=== PATIENT | female | born 1985 | race Caucasian/White ===

== ENCOUNTER 2018-09-25 11:58 | Emergency (ER) | payer MEDICAID, OTHER ==
[2018-09-25 12:17] VITALS: BP 129/82; PULSE 91; RESP 18; TEMP 98.8; O2SAT 99; BMI 19.4
--- NOTE | 2018-09-25 14:17 | CT ---
Date of service: 09/25/2018 PROCEDURE: CT HEAD WITHOUT CONTRAST. HISTORY: head injury COMPARISON: None available. TECHNIQUE: Axial computed tomography images were obtained through the head/brain without intravenous contrast. Radiation dose: Total exam DLP = 781.23 mGy-cm. This CT exam was performed using one or more of the following dose reduction techniques: Automated exposure control, adjustment of the mA and/or kV according to patient size, and/or use of iterative reconstruction technique. FINDINGS: HEMORRHAGE: No intracranial hemorrhage. BRAIN: Normal cedeno-white matter differentiation and density are appreciated throughout the cerebrum and cerebellum with the brainstem appearing unremarkable as well. There is no mass effect. There is no suspicious extra-axial fluid collection and the midline brain anatomy appears diffusely unremarkable. VENTRICLES: Unremarkable. No hydrocephalus. CALVARIUM: Unremarkable. PARANASAL SINUSES: Unremarkable as visualized. No significant inflammatory changes. MASTOID AIR CELLS: Unremarkable as visualized. No inflammatory changes. OTHER FINDINGS: None. IMPRESSION: Unremarkable noncontrast CT of the Head.
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
== END 2018-09-25 15:15 | disposition home or self-care (01) ==
LOC: H.ER 11:58
DX: S09.90XA Unspecified injury of head, initial encounter (principal); Y04.0XXA Assault by unarmed brawl or fight, initial encounter; Y92.89 Other specified places as the place of occurrence of the external cause

== ENCOUNTER 2018-10-16 11:30 | Emergency (ER) | payer MEDICAID, OTHER ==
[2018-10-16 11:45] VITALS: BMI 22.8
[2018-10-16 11:46] VITALS: TEMP 98
--- NOTE | 2018-10-16 12:11 | ED PDOC ---
HPI: Chest Pain Time Seen by Provider: 10/16/18 11:49 Chief Complaint (Nursing): Weakness/Neurological Deficit Chief Complaint (Provider): Chest Pain History Per: Patient History/Exam Limitations: no limitations Onset/Duration Of Symptoms: Hrs Current Symptoms Are (Timing): Still Present Additional Complaint(s): 33 year old female with a past medical history of bipolar disease presents to the ER for an evaluation of chest pain described as numbness in the left arm af ter having seizure when showering standing up at gym 45 prior to arrival. The seizure was not witnessed. Patient states she has seizures frequently between 7pm to 9pm. She does not take any medication and she follows-up with a neurologist. Denies any fall, shortness of breath, cough, injury or fever. PMD: Non [facility] Provider Past Medical History Reviewed: Historical Data, Nursing Documentation, Vital Signs Vital Signs: Last Vital Signs Temp 98 F 10/16/18 11:45 Pulse 74 10/16/18 11:45 Resp 20 10/16/18 11:45 BP 128/86 10/16/18 11:45 Pulse Ox 100 10/16/18 11:45 - Medical History PMH: Anxiety, Bipolar Disorder, Diabetes, Fibromyalgia, HTN, Post Traumatic Stress Disorder, Schizophrenia, Seizures Denies: Hepatitis, HIV, Chronic Kidney Disease, Sexually Transmitted Disease - Family History Family History: States: Unknown Family Hx - Immunization History Hx Tetanus Toxoid Vaccination: No Hx Influenza Vaccination: No Hx Pneumococcal Vaccination: No - Home Medications Home Medications: Ambulatory Orders Medication Instructions Recorded Cephalexin [cephalexin] 500 mg PO QID #28 cap 06/13/18 Ibuprofen [Motrin] 600 mg PO Q8 PRN #20 tab 06/13/18 - Allergies Allergies/Adverse Reactions: Allergies Allergy/AdvReac Type Severity Reaction Status Date / Time acetaminophen [From Tylenol] Allergy SWELLING Verified 06/13/18 20:27 fluticasone Allergy SWELLING Verified 06/13/18 20:27 [From Advair Diskus] gluten Allergy SWELLING Verified 06/13/18 20:27 salmeterol Allergy SWELLING Verified 06/13/18 20:27 [From Advair Diskus] shellfish derived Allergy SWELLING Verified 06/13/18 20:27 Review of Systems ROS Statement: Except As Marked, All Systems Reviewed And Found Negative Constitutional: Negative for: Fever Cardiovascular: Positive for: Chest Pain Respiratory: Negative for: Cough, Shortness of Breath Musculoskeletal: Positive for: Arm Pain (left) Neurological: Negative for: Headache, Dizziness Psych: Negative for: Suicidal ideation (homicidal ideation) Physical Exam - Reviewed Nursing Documentation Reviewed: Yes Vital Signs Reviewed: Yes - Physical Exam Appears: Positive for: Well, Non-toxic, No Acute Distress Head Exam: Positive for: ATRAUMATIC, NORMAL INSPECTION, NORMOCEPHALIC Skin: Positive for: Normal Color, Warm, Dry. Negative for: Rash Eye Exam: Positive for: EOMI, Normal appearance, PERRL ENT: Positive for: Normal ENT Inspection Neck: Positive for: Normal, Painless ROM Cardiovascular/Chest: Positive for: Regular Rate, Rhythm. Negative for: Murmur Respiratory: Positive for: Normal Breath Sounds. Negative for: Decreased Breath Sounds, Wheezing, Respiratory Distress Gastrointestinal/Abdominal: Positive for: Normal Exam, Soft. Negative for: Tenderness Back: Positive for: Normal Inspection Extremity: Positive for: Normal ROM. Negative for: Tenderness, Pedal Edema, Deformity Neurologic/Psych: Positive for: Alert, dewer II-XII (intact), Oriented (x3), Gait (steady). Negative for: Motor/Sensory Deficits, Mood/Affect, Aphasia, Facial Droop - Laboratory Results Result Diagrams: 10/16/18 12:15 10/16/18 12:15 - ECG O2 Sat by Pulse Oximetry: 100 (RA) Pulse Ox Interpretation: Normal Medical Decision Making Medical Decision Making: Time: 1200 Initial Plan: EKG Alcohol Serum CMP Drug Screen Troponin I ED Urine ED Urine Dipstick CBC w/ Differential Reevaluation Pt offered admission for chest pain as well as recurrent seizures. Pt evaluated by crisis but is not approproiate for psychaitric admission. Pt is awake and alert and understands consequences of not staying for further eval. including recurrent seizures, [place] and . Scribe Attestation: Documented by Martinez Mcdonald, acting as a scribe for Orestes Plasencia MD. Provider Scribe Attestation: All medical record entries made by the Scribe were at my direction and personally dictated by me. I have reviewed the chart and agree that the record accurately reflects my personal performance of the history, physical exam, m edical decision making, and the department course for this patient. I have also personally directed, reviewed, and agree with the discharge instructions and disposition. Disposition - Clinical Impression Clinical Impression: Anxiety - Patient ED Disposition Is Patient to be Admitted: No Counseled Patient/Family Regarding: Studies Performed, Diagnosis, Need For Followup, Rx Given - Disposition Referrals: Ty Iglesias MD [Medical Doctor] - Disposition: Routine/Home Disposition Time: 14:53 Condition: FAIR Additional Instructions: FOLLOW UP WITH [facility] [address] [place] [address] Instructions: Anxiety, Adult (DC) Forms: [employer] (Paraguayan)
[2018-10-16 12:18] LABS: BASO # 0.1 K/uL (0.0-0.2); BASO % 0.8 % (0.0-2.0); EOS # 0.2 K/uL (0.0-0.7); EOS % 2.6 % (0.0-4.0); HEMOGLOBIN 10.9 g/dL (12.0-16.0); LYMPH # 1.1 K/uL (1.0-4.3); LYMPH % 16.6 % (20.0-40.0); MEAN CELL VOLUME 86.7 fl (81.0-99.0); MEAN CORPUSCULAR HEMOGLOBIN 28.2 pg (27.0-31.0); MEAN CORPUSCULAR HGB CONC 32.6 g/dL (33.0-37.0); MEAN PLATELET VOLUME 6.9 fl (7.2-11.7); MONO # 0.8 K/uL (0.0-0.8); NEUT # 4.4 K/uL (1.8-7.0); NRBC % 0.1 % (0.0-0.0); RBC 3.87 Mil/uL (3.80-5.20); RED CELL DISTRIBUTION WIDTH 16.7 % (11.5-14.5); WHITE BLOOD COUNT 6.5 K/uL (4.8-10.8)
[2018-10-16 12:29] LABS: ALB/GLOB RATIO 1.3 (1.0-2.1); ALBUMIN 4.2 g/dL (3.5-5.0); ALT/SGPT 33 U/L (9-52); AST/SGOT 32 U/L (14-36); BLOOD UREA NITROGEN 16 mg/dl (7-17); CALCIUM 9.2 mg/dL (8.4-10.2); GFR NON-AFRICAN AMERICAN > 60
[2018-10-16 15:16] VITALS: BP 135/84; PULSE 88; RESP 17; O2SAT 98
--- NOTE | 2018-10-16 18:33 | CARD ---
APPROVED REPORT Date of service: 10/16/2018 EKG Measurement Heart [id number] 150P-16 [id number] <Conclusion> Normal sinus rhythm Normal Electrocardiogram
== END 2018-10-16 15:17 | disposition home or self-care (01) ==
LOC: H.ER 11:30
DX: F41.9 Anxiety disorder, unspecified (principal); E11.9 Type 2 diabetes mellitus without complications; I10 Essential (primary) hypertension; F31.9 Bipolar disorder, unspecified